=== PATIENT | male | born 1965 | race African-American/Black ===

== ENCOUNTER 2016-11-12 06:49 | Emergency (ER) | payer OTHER ==
[~2016-11-12] VITALS: Ht 177.8 cm; Wt 86.0 kg
[2016-11-12] MEDS ORDERED: TRAMADOL 50MG TABLET PO ONE (07:45)
[2016-11-12 12:09] VITALS: BP 125/70
== END 2016-11-12 12:13 | disposition home or self-care (01) ==
LOC: ER 06:49
DX: R07.9 Chest pain, unspecified (principal); R05 Cough; R06.2 Wheezing; I10 Essential (primary) hypertension; F20.9 Schizophrenia, unspecified; J45.909 Unspecified asthma, uncomplicated; F17.200 Nicotine dependence, unspecified, uncomplicated
CPT/HCPCS: 71010; 93005; 99284

== ENCOUNTER 2016-11-20 12:57 | Emergency (ER) | payer OTHER ==
[~2016-11-20] VITALS: Ht 177.8 cm; Wt 103.4 kg
[2016-11-20] MEDS ORDERED: LORAZEPAM 1MG TABLET PO ONE (14:30)
[2016-11-20 14:53] LABS: BASOPHILS % 1.4 % (0.0-2.0); EOSINOPHILS % 1.8 % (0.0-5.0); HEMATOCRIT. 38.7 % (42.0-52.0); MEAN CORPUSCULAR HEMOGLOBIN 30.2 pg (28.0-32.0); MEAN CORPUSCULAR VOLUME 89.4 fL (80.0-94.0); MEAN PLATELET VOLUME 7.5 fl (7.4-10.4); NEUTROPHILS % 53.8 % (40.0-76.0); PLATELET 237 x1000/uL (130-400); RED BLOOD CELL COUNT 4.33 mill/uL (4.7-6.1); RED CELL DISTRIBUTION WIDTH 14.4 % (11.6-14.6)
[2016-11-20 14:56] LABS: CHLORIDE 107 mEq/L (98-107)
[2016-11-20 15:12] LABS: CARBON DIOXIDE 28 mEq/L (21-32); ETHANOL BLOOD < 10 mg/dL
[2016-11-21 05:41] LABS: *AMPHETAMINES SCREEN URINE NEGATIVE (NEGATIVE); *BARBITURATES SCREEN URINE NEGATIVE (NEGATIVE); *BENZODIAZEPINES SCREEN URINE NEGATIVE (NEGATIVE); *COCAINE SCREEN URINE NEGATIVE (NEGATIVE); CANNABINOID URINE SCREEN NEGATIVE (NEGATIVE); METHADONE URINE SCREEN NEGATIVE (NEGATIVE); OPIATES URINE SCREEN NEGATIVE (NEGATIVE); PHENCYCLIDINE URINE SCREEN NEGATIVE (NEGATIVE)
[2016-11-21 10:58] VITALS: BP 130/66
== END 2016-11-21 12:58 | disposition home or self-care (01) ==
LOC: ER 14:02
DX: R00.2 Palpitations (principal); F29 Unspecified psychosis not due to a substance or known physiological condition; I10 Essential (primary) hypertension; F20.9 Schizophrenia, unspecified
CPT/HCPCS: 36415; 80053; 80305; 80307; 80329; 84443; 85025; 93005; 99285; 99406; G0482